=== PATIENT | female | born 1950 | race Caucasian/White ===

== ENCOUNTER 2023-11-15 18:53 | Emergency (ER) | payer MEDICARE, SELFPAY ==
[2023-11-15 18:54] VITALS: BP 178/64; PULSE 66; RESP 14; TEMP 36.3; O2SAT 97; BMI 24.7
[2023-11-15 20:00] VITALS: BP 178/64; PULSE 66; RESP 14; TEMP 36.3; O2SAT 97
--- NOTE | 2023-11-15 20:00 | RAD_ITS ---
INDICATION: Cat bite cellulitis second MCP EXAMINATION/TECHNIQUE: X-RAY - RIGHT XR Hand Min 3 Views 4 VIEWS COMPARISON: No relevant prior comparison study available FINDINGS: BONES: No fracture demonstrated. Mild degenerative changes mostly at the distal interphalangeal joint second through fifth digits. Small fragment adjacent to the distal interphalangeal joint of the second digit/index finger at the dorsal aspect appears well-corticated and may be related to an old fracture and/or degenerative change. JOINTS: No dislocation. SOFT TISSUES: Unremarkable. No radiopaque foreign body identified. RAD/Hand Min 3 Views IMPRESSION: No evidence of fracture. No radiopaque foreign body identified. Electronically Signed: Day Lakhani MD at 20:24 EDT ,
--- NOTE | 2023-11-15 20:01 | EX.ED.GENINJ ---
HPI History of Present Illness Chief Complaint: Bite Informant: patient and family Narrative Narrative: 73-year-old female presenting to the emergency room with cat bite to the right hand. Patient states that last Saturday morning her cat saw another cat through the screen of her window. The 2 began hissing at each other and she attempted to close the window by removing her cat when the cat bit her on the right proximal index finger/MCP joint. She notes by the next day she had swelling and redness on the dorsum of the hand including the lateral MTP joints. She notes that the second MTP joint is still swollen and warm. She has range of motion but notes it is painful to do so. She denies any more proximal symptoms at this time. She denies any more distal symptoms. No reported fevers. Patient is a diabetic but does not take any immunosuppressive medications. [facility] Medical History Edema Kidney disease High blood pressure Hearing problem Diabetes Anemia Home Medications ?Medication ?Instructions ?Recorded ?Last Taken ?Type amlodipine 10 mg tablet 10 mg PO DAILY #90 tabs 08/20/23 Unknown Rx ascorbic acid (vitamin C) 1,000 mg 1 g PO Q6H 08/20/23 Unknown History capsule aspirin 81 mg tablet,delayed 81 mg PO DAILY 08/20/23 Unknown History release (Adult Aspirin Regimen) atorvastatin 40 mg tablet 40 mg PO DAILY #90 tabs 08/20/23 Unknown Rx carvedilol 12.5 mg tablet 12.5 mg PO BID #180 tabs 08/20/23 Unknown Rx cholecalciferol (vitamin D3) 25 25 mcg PO BID 08/20/23 Unknown History mcg (1,000 unit) capsule coQ10 (ubiquinol) 100 mg capsule 100 mg PO DAILY 08/20/23 Unknown History (Qunol Alpesh CoQ10) ferrous sulfate 325 mg (65 mg 325 mg PO DAILY 08/20/23 Unknown History iron) tablet (Feosol) hydralazine 25 mg tablet 25 mg PO BID #180 tabs 08/20/23 Unknown Rx levothyroxine 88 mcg capsule 88 mcg PO DAILY #90 caps 08/20/23 Unknown Rx multivitamin (Multiple Vitamins 1 tab PO DAILY 08/20/23 Unknown History tablet) sitagliptin phosphate 50 mg tablet 50 mg PO DAILY #90 tabs 08/20/23 Unknown Rx (Januvia) venlafaxine 150 mg 150 mg PO QHS #90 caps 08/20/23 Unknown Rx capsule,extended release 24 hr peg 3350-electrolytes 236 4,000 ml PO ONCE #4,000 mL 10/15/23 Unknown Rx gram-22.74 gram-6.74 gram-5.86 gram solution insulin lispro 100 unit/mL 1 sliding scale dose subcut 10/31/23 Unknown Rx subcutaneous pen (Humalog KwikPen USEASDIRECTD #15 mL (U-100) Insulin) amoxicillin 875 mg-potassium 875 mg PO Q12H #19 TABLETS 11/15/23 Unknown Rx clavulanate 125 mg tablet Allergy/AdvReac Type Severity Reaction Status Date / Time aspirin (ASA) AdvReac Severe Rash Verified 11/15/23 18:54 Family History Mother Angina at rest Diabetes Myocardial infarction Heart disease Hypertension Father Angina at rest Heart disease Sister Cancer breast cancer Diabetes Myocardial infarction Hypertension Kidney disease Aunt Cancer breast Diabetes Hypertension Brother Hypertension Surgical History S/P tubal ligation H/O heart artery stent Social History household members: none housing: house current occupational status: unemployed Smoking Status: Former smoker quit date: 04/08/81 pack-years: 5 Electronic Cigarette Use: not used alcohol intake: current alcohol intake frequency: holidays/special occasions only substance use type: does not use what type of physical activity do you participate in: walking frequency: daily seatbelt use: always do you feel safe at home: Yes ROS ROS ED Constitutional Constitutional ED: Denies chills, fever(s) or weight loss Eyes Eyes: Denies change in vision or diplopia ENT ENT ED: Denies ear pain, rhinorrhea or sore throat Cardiovascular Cardiovascular: Denies chest pain, orthopnea, palpitations or racing heartbeat Respiratory/Chest Respiratory/Chest: Denies cough, dyspnea or orthopnea Gastrointestinal Gastrointestinal: Denies abdominal pain, diarrhea, nausea or vomiting Genitourinary Genitourinary ED: Denies dysuria, hematuria or urinary frequency Musculoskeletal Musculoskeletal: Denies arthralgias or myalgias Integumentary Reports other Details: See history of present illness ; Denies abscess or rash Neurologic Neurologic: Denies headache(s) or weakness Psychiatric Psychiatric: Denies anxiety, depression, suicidal ideation or suicidal thoughts Endocrine Endocrinology: Denies polydipsia, polyphagia or polyuria Allergic/Immunologic Allergic/Immunologic ED: Denies mouth swelling, tongue swelling or urticaria EXAM Physical Exam Const Vital Signs: 11/15/23 18:54 11/15/23 20:00 Temperature 97.3 F L 97.3 F L Temperature Source Temporal Temporal Pulse Rate 66 66 Respiratory Rate 14 14 Blood Pressure 178/64 H 178/64 H Blood Pressure Mean 102 102 Pulse Ox 97 97 Oxygen Delivery Method Room Air Room Air Positive well nourished and well developed General Appearance ED: well developed HEENT Reports normocephalic, head/scalp atraumatic and moist mucous membranes Eyes PERRL and EOMs intact bilaterally Neck no lymphadenopathy, supple and no JVD Resp normal respiratory effort and clear to auscultation bilaterally Cardio regular rate, regular rhythm and no murmurs GI normal to inspection, nondistended, normoactive bowel sounds and non-tender Palpation: soft Back/Spine no CVA tenderness and normal ROM Extremity Extremity Narrative: There is mild swelling ecchymosis increased warmth and slight erythema at the second MCP joint of the right hand. This extends approximately 2 cm proximally from the joint on the dorsum of the hand. There are 2 healed puncture sites on the dorsum and dorsal lateral aspect of the proximal phalanx area of the index finger. There is no evidence of tenosynovitis. There is no sausage finger. The tissue of the index finger is still soft. General Extremety ED: Negative for edema General Extremity: Negative for edema Neuro oriented x3 and CN's II-XII intact bilaterally Sensorium / Orientation: alert Motor Exam: strength 5/5 throughout Psych mental status grossly normal Mood & Affect: Negative for depressed or tearful Skin no rashes or lesions noted and no wounds MDM MDM MDM Narrative Medical decision making narrative: Differential diagnosis includes but not limited to cellulitis tenosynovitis retained foreign body osteomyelitis contusion My independent interpretation of the plain films of the right hand is no obvious foreign body. No gas in the soft tissue. Radiology concurs. Patient was given a dose of Augmentin will be given prescription for same. Would recommend heat monitoring for worsening symptoms and return if needed. Patient is comfortable with this plan. Daughter was present during the discussion. History & Record Review Discussion w/independent historian: Patient and Family Radiography Diagnostic Testing: Clinical Impression(s) from Imaging Studies Hand X-Ray 11/15/23 20:00 IMPRESSION: No evidence of fracture. No radiopaque foreign body identified. Electronically Signed: Day Lakhani MD at 20:24 EDT , Discharge Plan Triage Chief Complaint: Bite ED Provider: Braden Scherer Dx/Rx/DC Orders Clinical Impression: Cat bite, Cellulitis of hand, right, Diabetes mellitus Instructions: ED Cat Bite Prescriptions: New amoxicillin-pot clavulanate 875-125 mg tablet 875 mg PO Q12H Qty: 19 0RF No Action aspirin [Adult Aspirin Regimen] 81 mg tablet,delayed release (DR/EC) 81 mg PO DAILY ferrous sulfate [Feosol] 325 mg (65 mg iron) tablet 325 mg PO DAILY multivitamin [Multiple Vitamins] Tablet 1 tab PO DAILY cholecalciferol (vitamin D3) 25 mcg (1,000 unit) capsule 25 mcg PO BID coQ10 (ubiquinol) [Qunol Alpesh CoQ10] 100 mg capsule 100 mg PO DAILY ascorbic acid (vitamin C) 1,000 mg capsule 1 g PO Q6H amlodipine 10 mg tablet 10 mg PO DAILY Qty: 90 1RF hydralazine 25 mg tablet 25 mg PO BID Qty: 180 1RF atorvastatin 40 mg tablet 40 mg PO DAILY Qty: 90 1RF carvedilol 12.5 mg tablet 12.5 mg PO BID Qty: 180 1RF Rx Instructions: must administer with a meal/food Januvia 50 mg tablet 50 mg PO DAILY Qty: 90 1RF levothyroxine 88 mcg capsule 88 mcg PO DAILY Qty: 90 1RF peg 3350-electrolytes 236-22.74-6.74 -5.86 gram recon soln 4,000 ml PO ONCE Qty: 4000 0RF Rx Instructions: until fecal effluent is clear; do not exceed a total volume of 4000 mL venlafaxine 150 mg capsule,extended release 24hr 150 mg PO QHS Qty: 90 1RF insulin lispro [Humalog KwikPen Insulin] 100 unit/mL insulin pen 1 sliding scale dose subcut USEASDIRECTD Qty: 15 3RF Primary Care Provider: Shantelle Xavier Referrals: Shantelle Xavier MD [Primary Care Provider] - As Needed Print Language: Albanian Disposition Disposition: Home, Self Care
[2023-11-15] MEDS: Amox/Clavulanate 875 MG Tablet PO (20:11)
[2023-11-15 20:40] VITALS: BP 177/81; PULSE 62; RESP 17; TEMP 36.4; O2SAT 98
== END 2023-11-15 20:41 | disposition home or self-care (01) ==
PROVIDERS: Emergency Provider Emergency Medicine; PCP Internal Medicine; Visit Provider Emergency Medicine
DX: S60.571A Other superficial bite of hand of right hand, initial encounter (principal); E11.628 Type 2 diabetes mellitus with other skin complications; Z79.4 Long term (current) use of insulin; W55.01XA Bitten by cat, initial encounter; Y93.89 Activity, other specified; L03.113 Cellulitis of right upper limb; I10 Essential (primary) hypertension; Z79.82 Long term (current) use of aspirin; Z79.84 Long term (current) use of oral hypoglycemic drugs; Z79.899 Other long term (current) drug therapy; Z87.891 Personal history of nicotine dependence
CPT/HCPCS: 73130; 99282

== ENCOUNTER → 2023-12-17 | Outpatient (CLI) | payer MEDICARE, SELFPAY ==
[2023-12-17 15:48] LABS: Absolute Lymphocyte Count 3.33 X10^3/uL (0.83-4.51); Absolute Neutrophil Count 3.3 X10^3/uL (2.0-7.7); Basophil# 0.06 X10^3/uL; Basophil% 0.8 % (0-1); Hematocrit 36.6 % (37-47); Hemoglobin 11.9 g/dL (12.0-15.0); Lymphocyte # 3.33 X10^3/ul (0.83-4.51); Lymphocyte % 44.2 % (19-41); Mean Corp Hgb Conc 32.5 g/dL (32-36); Mean Corpuscular Hgb 29.8 pg (27.0-32.0); Mean Corpuscular Volume 91.5 fL (81-99); Mean Platelet Vol. 9.3 fl (6.2-12.0); Monocyte# 0.56 X10^3/uL; Monocyte% 7.4 % (0-10); NRBC Flagged by Analyzer 0 % (0-5); Neutrophil # 3.27 X10^3/uL (2.7-7.7); Neutrophil % 43.5 % (47-70); Platelet Count 268 K/mm3 (150-450); RBC Distribution Width CV 14.4 % (11.6-14.6); RBC Distribution Width SD 48.8 fl (35.1-43.9); White Blood Count 7.5 K/mm3 (4.4-11.0)
[2023-12-17 16:11] LABS: AST(SGOT) 40 U/L (15-37); Alanine Aminotransfer ALT/SGPT 49 U/L (13-56); Albumin, Serum 3.8 g/dL (3.2-5.0); Alkaline Phosphatase 68 U/L (45-117); Anion Gap 7 (5-15); BUN 50 mg/dL (7-18); BUN/Creat Ratio 27.9 RATIO (10-20); Calcium,Total 9.5 mg/dL (8.5-10.1); Chloride 100 mmol/L (98-107); Cholesterol 206 mg/dL (200); Creatinine, Serum 1.79 mg/dL (0.55-1.02); EST Glomerular Filtration Rate 29 mL/min (>60); Est Glom Filt Rate - Afr Amer 36 mL/min (>60); Glucose 253 mg/dL (74-106); High Density Lipoprotein 82 mg/dL; Potassium 4.4 mmol/L (3.5-5.1); Protein, Total 7.8 g/dL (6.4-8.2); Sodium Level 133 mmol/L (136-145); T4 Free Direct 1.15 ng/dL (0.76-1.46); Triglycerides 62 mg/dL; Very Low Density Lipoprotein 12 mg/dL (5-40)
== END | disposition home or self-care (01) ==
LOC: BIMLAB 14:20
PROVIDERS: PCP Internal Medicine; Referring Provider Nurse Practitioner; Visit Provider Nurse Practitioner
DX: I10 Essential (primary) hypertension (principal); E11.9 Type 2 diabetes mellitus without complications; I25.10 Atherosclerotic heart disease of native coronary artery without angina pectoris; E03.9 Hypothyroidism, unspecified
CPT/HCPCS: 36415; 80053; 80061; 84439; 84443; 85025

== ENCOUNTER → 2024-01-20 | Outpatient (CLI) | payer MEDICARE, SELFPAY ==
--- NOTE | 2024-01-20 06:10 | ECHOD_ITS ---
Reason For Study: HYPERTENSION Procedure This was a 2D Doppler, Color Flow transthoracic echocardiogram. Exam performed in department. Left Ventricle Normal LV size. Left ventricular systolic function is normal. The left ventricular ejection fraction is 70 %. No regional wall motion abnormalities noted. Right Ventricle Normal RV size. Normal systolic function. Atria Normal left atrium. Normal right atrium. Bubble contrast study negative for right to left interatrial shunt. Mitral Valve Normal mitral valve. Tricuspid Valve Normal tricuspid valve. Aortic Valve Trisinus/trileaflet aortic valve. Pulmonic Valve Normal pulmonic valve. Great Vessels Normal aortic root. The pulmonary artery is normal size. Normal inferior vena cava. Pericardium/Pleural No pericardial effusion. Medication Performed a rapid injection of agitated mix of 9 cc saline and 1cc air to assess for atrial septal defect. MMode/2D Measurements & Calculations LVIDd: 3.6 cm IVSd: 0.97 cm LVOT diam: 1.8 cm LVIDs: 2.0 cm LVPWd: 0.85 cm RVDd: 4.1 cm FS: 44.1 % LVOT area: 2.6 cm2 asc Aorta Diam: 3.1 cm LAV(MOD-bp): 40.3 ml LVAd ap4: 21.1 cm2 LAV(MOD-bp) Indexed: 26.9 ml/m2 LVLd ap4: 7.1 cm LAV(MOD-sp2): 38.7 ml EDV(MOD-sp4): 50.6 ml LAV(MOD-sp4): 41.5 ml EDV(sp4-el): 52.8 ml LVAs ap4: 9.1 cm2 LVLs ap4: 5.9 cm ESV(MOD-sp4): 12.6 ml ESV(sp4-el): 11.9 ml EF(MOD-sp4): 75.0 % EF(sp4-el): 77.5 % LVAd ap2: 20.3 cm2 SV(MOD-sp4): 38.0 ml SV(MOD-sp2): 31.0 ml LVLd ap2: 7.7 cm EDV(MOD-sp2): 43.6 ml EDV(sp2-el): 45.4 ml LVAs ap2: 9.8 cm2 LVLs ap2: 6.2 cm ESV(MOD-sp2): 12.6 ml ESV(sp2-el): 13.0 ml EF(MOD-sp2): 71.1 % SV(sp4-el): 41.0 ml Ao sinus diam: 2.[address] Junction: 2.2 cm LA dimension(2D): 3.4 cm LA A4 area: 16.6 cm2 RA A4 area: 9.4 cm2 TAPSE: 2.1 cm Time Measurements MV dec time: 0.28 sec Doppler Measurements & Calculations MV E max tera: 93.3 cm/sec Lat Peak E' Tera: 11.2 cm/sec Med Peak E' Tera: 9.5 cm/sec MV A max tera: 100.9 cm/sec E/E' lat: 8.4 E/E' med: 9.8 MV E/A: 0.92 MV dec slope: 332.0 cm/sec2 Ao V2 max: 142.7 cm/sec LV V1 max: 141.6 cm/sec Ao max P.1 mmHg LV V1 max P.0 mmHg Ao V2 mean: 104.5 cm/sec LV V1 mean P.2 mmHg Ao mean P.7 mmHg LV V1 mean: 96.2 cm/sec Ao V2 VTI: 37.0 cm LV V1 VTI: 37.3 cm AV (velocity ratio): 1.0 NETTIE(I,D): 2.7 cm2 NETTIE(V,D): 2.6 cm2 SV(LVOT): 98.6 ml PA V2 max: 107.6 cm/sec TR max tera: 294.9 cm/sec PA max PG (full): 1.0 mmHg TR max P.8 mmHg ECHO/Echo Complete Interpretation Summary Normal LV size. Left ventricular systolic function is normal. The left ventricular ejection fraction is 70 %. Bubble contrast study negative for right to left interatrial shunt. Ordering Physician: Lonnie Portillo Referring Physician: Lonnie Portillo MD Performed By: Connie Loya ARLINE
--- NOTE | 2024-01-20 09:34 | STRESSREP ---
Stress Test Report Pharmacologic myocardial perfusion stress test. 73-year-old lady with a history of chest pain Resting EKG demonstrates sinus rhythm with a rate of 68 bpm. Resting blood pressure is 188/68 mmHg. 0.4 mg of regadenoson was infused per usual protocol followed by rapid intravenous saline flush injection. Continuous EKG monitoring was performed. The maximum heart rate was 93 bpm which was 64% of max impacted heart rate the maximum workload was 1 metabolic equivalent. At rest there were no ST or T wave changes noted to suggest ischemia and at peak infusion nonspecific ST changes were noted which did not meet the criteria for ischemia. No clinical angina is noted. The final blood pressure was 152/60 mmHg. the patient did develop significant hypotension during the infusion though. Myocardial perfusion protocol. 11.7 mCi of technetium 99m sestamibi was injected at rest. 0.4 mg of regadenoson was infused per usual protocol. At peak infusion 34.1 mCi of technetium 99m sestamibi was injected stress images were obtained stress and rest images were reconstructed and compared in the short axis vertical long and horizontal long axis. Gated images were also obtained. Perfusion SPECT analysis: Review of the stress images demonstrate normal uptake of tracer noted in all areas of the myocardium. The resting images similar demonstrated normal uptake of tracer noted in all areas of the myocardium. No areas of reversibility are noted to suggest ischemia and no previous infarct is noted. Gated SPECT analysis: The gated ejection fraction is 78%. Conclusion: Normal pharmacologic myocardial perfusion stress test. Preserved ejection fraction.
== END | disposition home or self-care (01) ==
LOC: CVS 06:10
PROVIDERS: PCP Internal Medicine; Referring Provider Internal Medicine Cardiovascular Disease; Visit Provider Internal Medicine Cardiovascular Disease
DX: I10 Essential (primary) hypertension (principal); I25.10 Atherosclerotic heart disease of native coronary artery without angina pectoris
CPT/HCPCS: 78452; 93017; 93306; A9500; A4216; J2785

== ENCOUNTER 2024-02-28 06:22 | Day surgery (SDC) | payer MEDICARE, SELFPAY ==
[2024-02-28] VITALS (8 sets, daily range): BP systolic 89–153; BP diastolic 57–69; PULSE 71–83; RESP 16–17; TEMP 36.2–36.6; O2SAT 92–99; BMI 24.5
--- NOTE | 2024-02-28 07:11 | PCM.PRE.AN2 ---
ASA Classification* ASA Classification ASA Classification: 3 Assessment & Plan Anesthesia* Anesthesia Assessment Anesthesia Assessment: Discussed sedation and/or anesthesia options, risks, benefits, and alternatives with patient/parents/legal guardian/POA. Questions invited. The patient/parents/legal guardian/POA seems to understand and agrees to proceed with anesthesia plan. Reviewed the physical assessment, medical history, allergy history and patient home medications list prior to surgery/procedure/anesthetic and documented any changes. Performed airway and anesthesia risk assessments. Anesthesia Type Anesthesia Type: MAC Anesthesia Focused Assessment* Temperature: 97.8 F Pulse Rate: 71 Blood Pressure: 153/61 Respiratory Rate: 17 Pulse Ox: 99 Airway Assessment Mouth opens: >3 cm Mallampati Score: II Focused Labs Anesthesia Preop lab: CBC WBC 7.5 K/mm3 (4.4-11.0) 12/17/23 14:20 RBC 4.00 M/mm3 (4.2-5.4) L 12/17/23 14:20 Hgb 11.9 g/dL (12.0-15.0) L 12/17/23 14:20 Hct 36.6 % (37-47) L 12/17/23 14:20 Plt Count 268 K/mm3 (150-450) 12/17/23 14:20 CHEMISTRY Potassium 4.4 mmol/L (3.5-5.1) 12/17/23 14:20 Sodium 133 mmol/L (136-145) L 12/17/23 14:20 BUN 50 mg/dL (7-18) H 12/17/23 14:20 Creatinine 1.79 mg/dL (0.55-1.02) H 12/17/23 14:20 Glucose 253 mg/dL (74-106) H 12/17/23 14:20 TSH 4.770 uIU/mL (0.358-3.740) H 12/17/23 14:20 COAG Pre-Assessment Diagnosis/Proposed Procedure Planned Operative Procedure(s): CSCOPE Anesthesia History 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 When Was Last Pacemaker Check QUESTION #4 FULL TEXT: You/Your Family Experience fever (hyperthermia) with Anesthesia Last Oral Intake Last Oral intake: Last Oral Intake NPO since 00:00 02/28/24 06:50 Meds taken in AM with sips of Yes 02/28/24 06:50 water? 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 Female Yes 02/27/24 08:31 HX of Motion Sickness No 02/27/24 08:31 HX of N/V After Surgery No 02/27/24 08:31 Non-Smoker Yes 02/27/24 08:31 Duration of Surgery greater No 02/27/24 08:31 than 60 minutes Number of Risk Factors 2 02/27/24 08:31 PONV Score Moderate Risk 02/27/24 08:31 Height & Weight Height & Weight: Anesthesia: Height & Weight Height 5 ft 02/28/24 06:50 Weight: 57.1 kg 02/28/24 06:50 Body Mass Index (BMI) 24.5 02/28/24 06:50 Respiratory Assessment Respiratory Assessment - packing shed supervisor: Respiratory Tract Infection Hx - packing shed supervisor Hx Respiratory Tract Infection No 02/27/24 08:31 STOP Sleep Apnea STOP Sleep Apnea - packing shed supervisor: STOP Sleep Apnea - packing shed supervisor Hx Hypertension Yes: CONTROLLED WITH MED 02/27/24 08:31 Hx Sleep Apnea No 02/27/24 08:31 CPAP BIPAP Do you snore loudly (louder No 02/27/24 08:31 than talking or can be heard Do you often feel tired/ No 02/27/24 08:31 fatigued/ sleepy during daytime? Has anyone observed you stop No 02/27/24 08:31 breathing during sleep? STOP Results Negative 02/27/24 08:31 QUESTION #5 FULL TEXT : Do you snore loudly (louder than talking or can be heard through closed doors)? 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 Specify any problems Hx of Preganancy in last 3 No 02/27/24 08:31 Months Nurse Filling Out Transfusion DSCHRIBER 02/27/24 08:31 & Questions: Date: 02/27/24 02/27/24 08:31 Time: 08:32 02/27/24 08:31 Patient unable to answer at this time (ie. confused, unrespo /Reproduction History /Reproductive History - packing shed supervisor: /Reproductive Hx- packing shed supervisor Hx Now No 02/27/24 08:31 Gestational Age (in weeks): EDC: Hx Hx Para Hx Section SAB No 02/27/24 08:31 PFSH Medical History Loss of hearing Wears dentures Wears glasses Post-menopausal Depression Anxiety Alcohol use Thyroid disease Insulin dependent diabetes mellitus History of renal disease Low iron High cholesterol Dietary restriction Heartburn Former smoker Hypertension History of edema History of echocardiogram History of stress test Cardiology follow-up encounter History of CHF (congestive heart failure) Controlled type 2 diabetes mellitus Anxiety and depression Acquired hypothyroidism CAD (coronary artery disease) Kidney disease Hearing problem Anemia Home Medications ?Medication ?Instructions ?Recorded ?Last Taken ?Type amlodipine 10 mg tablet 10 mg PO DAILY #90 tabs 08/20/23 02/28/24 Rx aspirin 81 mg tablet,delayed 81 mg PO DAILY 08/20/23 02/26/24 History release (Adult Aspirin Regimen) carvedilol 12.5 mg tablet 12.5 mg PO BID #180 tabs 08/20/23 02/28/24 Rx cholecalciferol (vitamin D3) 25 25 mcg PO BID 08/20/23 02/27/24 History mcg (1,000 unit) capsule coQ10 (ubiquinol) 100 mg capsule 100 mg PO DAILY 08/20/23 02/27/24 History (Qunol Alpesh CoQ10) levothyroxine 88 mcg capsule 88 mcg PO DAILY #90 caps 08/20/23 02/28/24 Rx multivitamin (Multiple Vitamins 1 tab PO DAILY 08/20/23 02/27/24 History tablet) venlafaxine 150 mg 150 mg PO QHS #90 caps 08/20/23 02/27/24 Rx capsule,extended release 24 hr insulin lispro 100 unit/mL 1 sliding scale dose subcut 01/21/24 02/27/24 Rx subcutaneous pen (Humalog KwikPen USEASDIRECTD #15 mL (U-100) Insulin) sitagliptin phosphate 50 mg tablet 75 mg (1.5 x 50 mg) PO DAILY #90 01/21/24 02/27/24 Rx (Januvia) tabs hydralazine 25 mg tablet 25 mg PO BID #180 tabs 02/24/24 02/27/24 Rx atorvastatin 40 mg tablet 40 mg PO QHS 02/27/24 02/28/24 History Allergy/AdvReac Type Severity Reaction Status Date / Time aspirin (ASA) AdvReac Severe Rash Verified 02/28/24 06:49 Family History Mother Angina at rest Diabetes Myocardial infarction Heart disease Hypertension Father Angina at rest Heart disease Sister Cancer breast cancer Diabetes Myocardial infarction Hypertension Kidney disease Aunt Cancer breast Diabetes Hypertension Brother Hypertension Surgical History Hx of colonoscopy S/P tubal ligation H/O heart artery stent (04/15/08) Social History household members: none housing: house current occupational status: unemployed Smoking Status: Former smoker quit date: 04/08/81 pack-years: 5 Electronic Cigarette Use: not used alcohol intake: current alcohol intake frequency: holidays/special occasions only substance use type: does not use what type of physical activity do you participate in: walking frequency: daily seatbelt use: always do you feel safe at home: Yes Review of Systems (Anesthesia) ROS Narrative System reviewed and no additional complaints, except as documented.
--- NOTE | 2024-02-28 07:20 | HP.PCM_ITS ---
History and Physical Date of Admission: 02/28/24 Patient is a 73-year-old female who presents for need to schedule surveillance colonoscopy secondary to history of polyps and unknown duration since last colonoscopy. They are referred for surgical consultation from Dr. Xavier. Patient has had prior colonoscopy and she recalls that there was a history of 3 polyps that were removed and check for cancer but none was found. Patient has no personal history of colon cancer, inflammatory bowel disease, or diverticulitis. They describe their bowel habits as characterized by constipation. She shares that this has been the case for the last 1 to 2 years. She shares that she has tried Benefiber and MiraLAX without benefit while Dulcolax can take 3 tabs up to 3 days to begin working. She estimates that she will have a bowel movement every 5 to 7 days. They spend roughly less than 10 minutes on the toilet with occasional significant straining. They have not noticed recent bleeding or dark stools. She shares that she was advised to discontinue supplemental iron due to risk for constipation and has experienced some improvement in her stool frequency but not seen any further dark stools. They do not regularly take fiber supplements. They do consume significant fiber in their regular diet. Mrs. Rosario initially states that she has lots of water consumption, but then adds that some of this water consumption comes through her ice tea habit. In addition to the above Mrs. Rosario remarks of some bloating and lots of g as. She notes this is present mostly after dinner at night. Patient has no family history of colon cancer. The patient's weight is stable. The patient is not prescribed anticoagulants/blood thinners. Relevant prior abdominal surgical history includes: Tubal ligation Patient does not have a significant history of GERD/heartburn [] ROS General General: No weight change, appetite, fatigue, colon cancer, breast cancer or weakness HEENT HEENT: No difficulty swallowing, eye injury, eye surgery, swollen glands or hoarseness Endo Endocrine: Yes thyroid disease and diabetes mellitus; No thyroid cancer, Hair loss, heat intolerance or cold intolerance Skin Skin: No rash or changing moles Breast Breast: No left breast lump, right breast lump, nipple discharge, breast pain, abnormal mammogram, abnormal US or breast enlargement Musc Musculoskeletal: No back problems, arthritis, rheumatoid arthritis, gout or joint pain Cardio Cardiovascular: Yes heart disease, high blood pressure and heart stent; No murmur, pacemaker, atrial fibrillation, heart attack, palpitations, shortness of breat with exertion or chest pain Psych Psychiatric: No depression, anxiety or hearing voices Resp Respiratory: No shortness of breath, No sleep apnea, No cough, No COPD, No asthma, No emphysema and No wheezing Gastro Gastrointestinal: No abdominal pain, No nausea or vomiting, No diarrhea, Yes constipation, No blood in stool, No acid reflux, No hemorrhoids, No ulcers, No gallbladder problem and No black,tarry stools Claus Hematologic: No blood thinners, No blood disorders, No bleeding, No anemia and No blood clots Neuro Neurologic: No system reviewed and no additional complaints, except as documented, No as per HPI, No abnormal gait, No abnormal hearing, No abnormal movements, No abnormal speech, No behavioral changes, No burning sensations, No confusion, No convulsions, No disequilibrium, No dizziness, No localized weakness, No frequent falls, No headache(s), No lack of coordination, No loss of vision, No memory loss, No numbness, No other visual disturbances, No radicular pain, No restless legs, No sensory deficit, No syncope, No tingling, No tremor(s), No weakness and No other Exam Const General: cooperative, healthy appearing, comfortable and no acute distress Orientation: alert, awake and oriented x3 Resp Effort & Inspection: normal respiratory effort GI Other: No scars, no visible herniation, soft, nondistended, nontender to palpation x 4 quadrants Assessment and Plan Assessment and Plan (1) Constipation: Plan: Patient is a 73-year-old female who presents reportedly for concerns for updating her screening colonoscopies, however, she describes a 1 to 2-year history of constipation refractory to many prokinetic agents. She describes a bowel movement frequency of once every 5 to 7 days despite use of these agents. After a careful history it is apparent that her water intake may be suboptimal due to diuretic effects. She is encouraged to try to drink more water, however, given the change in her bowel habits and her history of colon polyps I do find is reasonable to pursue colonoscopy. Thus this is recommended and bowel prep was reviewed in detail. With her bowel habits refractory to Dulcolax I have prescribed a GoLytely bowel prep. We also discussed her history of coronary stent placement in 2008 without subsequent cardiology follow-up. While overall she appears to be in a stable state of health?denying any new fatigue or shortness of breath?she does have new swelling and marked hypertension issues (at today's visit her systolic pressures have ranged between 198 and 207 mmHg). Thus I will refer her to [facility] to establish care and seek their opinion for any preprocedure optimization prior to undergoing colonoscopy. (2) History of colon polyps: Status: Chronic Comment: Patient with a history of benign colon polyps. She is unsure of the surveillance interval recommended. She is also unsure of the last time she underwent colonoscopy, but given her development of new constipation I find it reasonable to update her surveillance with repeat colonoscopy. See above Plan: Plan will be to complete colonoscopy on sometime mid November under local [facility]. Pre-procedure prep discussed and paper instructions provided. Patient is also made aware that she will need to have a trailer truck driver with her the day of the procedure. I have examined the patient the following changes are noted: Patient met with cardiology and underwent preprocedural stress testing which she was able to complete without further event. She confirms she completed prep for today's procedure and her output is now clear. She denies any additional interval health issues. Will now proceed for colonoscopy given progressive history of constipation.
--- NOTE | 2024-02-28 07:30 | EGD_PTH ---
PATIENT: GOYO AARON LOC: EN U#:[id number] AGE/SX: 73/F ROOM: RE02/28/[address]: Dr. Ricki Ontiveros MD : 1950 BED: DIS: 02/28/2024 SPEC #: [id number] RECD: 02/28/24 12:08 STATUS: SOPHIA REChasity #: [id number] SAMY: 02/28/24 07:[address]: Ricki Ontiveros DEPT: SURGICAL PATHOLOGY RECD BY: Maldonado Garvin ENTERED: 02/28/24 12:08 SP TYPE: EGD BIOPSY OT DR: Dr. Shantelle Xavier MD Tissues: Descending colon Procedures: Surgery Specimen Level IV HEADER OPERATION: Colonoscopy and polypectomy PRE-OP DIAGNOSIS: Constipation TISSUE SUBMITTED: Descending colon polyp MICROSCOPIC DIAGNOSIS Descending colon polyp, biopsy: Tubular adenoma. AMKalpanamr 03/02/2024 MICROSCOPIC DESCRIPTION Slides are reviewed. GROSS DESCRIPTION Received in fixative is one container labeled with the patient's name and designated Descending colon polyp. The specimen consists of two irregular fragments of light mahajan soft tissue that in aggregate measure 0.6 x 0.3 x 0.2cm. The specimen is totally submitted in one cassette. 02/28/2024 TC:5 CPT:28283
--- NOTE | 2024-02-28 08:27 | PCM.POST.ANE ---
Anesthesia: Postop Eval I Current Vital Signs Temperature: 97.5 F Pulse Rate: 75 Blood Pressure: 127/60 Respiratory Rate: 16 Pulse Ox: 95 Oxygen Delivery Method: Room Air Assessment Airway patent: Yes Spontaneous unlabored respirations: Yes Mental status: Awake and Calm nausea: No Vomiting: No Anesthesia Complication: No Fluid Hydration Crystalloid volume administer (ml): 90 Total IV fluid infused: 90 Progress Note Anesthesia document: Postop Eval 1 completed: Yes
--- NOTE | 2024-02-28 08:39 | OP.COLON_ITS ---
Patient Name: Manju Rosario Procedure Date: 02/28/2024 7:26 AM Date of : 1950 Age: 73 Procedure: Colonoscopy Indications: Follow-up for history of colon polyps, Constipation Providers: Ricki Ontiveros MD Referring MD: Shantelle Xavier Md Medicines: See the Anesthesia note for documentation of the administered medications Patient Profile: Last Colonoscopy: date unknown. Unable to locate last colonoscopy report. Complications: No immediate complications. Estimated blood loss: Minimal. Procedure: Pre-Anesthesia Assessment: - The heart rate, respiratory rate, oxygen saturations, blood pressure, adequacy of pulmonary ventilation, and response to care were monitored throughout the procedure. After I obtained informed consent, the scope was passed under direct vision. Throughout the procedure, the patient's blood pressure, pulse, and oxygen saturations were monitored continuously. The pediatric colonoscope was introduced through the anus and advanced to the cecum, identified by the appendiceal orifice, IC valve and transillumination. Scope In: 7:42:02 AM Scope Withdrawal Time 0 hours 16 minutes 25 seconds Scope Out: 8:18:18 AM Total Procedure Duration Time 0 hours 36 minutes 16 seconds Findings: Skin tags were found on perianal exam. A small, non-bleeding polyp was found in the descending colon. The polyp was semi-pedunculated. The polyp was removed with a hot snare. Resection and retrieval were complete. Estimated blood loss was minimal. Scattered small-mouthed diverticula were found in the sigmoid colon. No biopsies or other specimens were collected for this exam. The exam was otherwise without abnormality on direct and retroflexion views. Impression: - Perianal skin tags found on perianal exam. - One small, non-bleeding polyp in the descending colon, removed with a hot snare. Resected and retrieved. - Diverticulosis in the sigmoid colon. No specimens collected. - The examination was otherwise normal on direct and retroflexion views. Recommendation: - Discharge patient to home (via wheelchair). - High fiber diet today. - No aspirin, ibuprofen, naproxen, or other non-steroidal anti-inflammatory drugs for 2 days after polyp removal. - Await pathology results. - Repeat colonoscopy date to be determined after pending pathology results are reviewed. - Telephone my office for pathology results in 1 week. Procedure Code(s): --- Professional --- 39725, Colonoscopy, flexible; with removal of tumor(s), polyp(s), or other lesion(s) by snare technique Diagnosis Code(s): --- Professional --- D12.4, Benign neoplasm of descending colon K64.4, Residual hemorrhoidal skin tags Z86.010, Personal history of colonic polyps K59.00, Constipation, unspecified K57.30, Diverticulosis of large intestine without perforation or abscess without bleeding CPT copyright 2021 [employer]. All rights reserved. The codes documented in this report are preliminary and upon certified professional coder review may be revised to meet current compliance requirements. Ricki Ontiveros MD 02/28/2024 8:39:38 AM This report has been signed electronically. Number of Addenda: 0 Note Initiated On: 02/28/2024 7:26 AM
--- NOTE | 2024-02-28 08:40 | OP.CCLET_ITS ---
02/28/2024 Shantelle Xavier Md Re : Colonoscopy procedure for Manju Rosario Dear Duc This procedure was performed on Wednesday, February 28, 2024. My impressions and recommendations are as follows: Impressions : - Perianal skin tags found on perianal exam. - One small, non-bleeding polyp in the descending colon, removed with a hot snare. Resected and retrieved. - Diverticulosis in the sigmoid colon. No specimens collected. - The examination was otherwise normal on direct and retroflexion views. Recommendations : - Discharge patient to home (via wheelchair). - High fiber diet today. - No aspirin, ibuprofen, naproxen, or other non-steroidal anti-inflammatory drugs for 2 days after polyp removal. - Await pathology results. - Repeat colonoscopy date to be determined after pending pathology results are reviewed. - Telephone my office for pathology results in 1 week. My findings are described in the full procedure note, which is enclosed. If I can be of further assistance, please feel free to contact me at Doctor phone number(s): , Work: . Sincerely, Ricki Ontiveros MD 02/28/2024 8:39:38 AM This report has been signed electronically.
[2024-02-28 09:10] LABS: Bedside Glucose 132 mg/dL (74-106)
--- NOTE | 2024-02-28 09:11 | PCM.POSTANE2 ---
Anesthesia Postop Eval I Sum Postop Eval Completion status Anesthesia document: Postop Eval 1 completed: Yes Anesthesia Postop Eval I Summary Anesthesia Postop Eval I Summary: Anesthesia Postop Eval I: Assessment Summary Airway patent Yes 02/28/24 08:28 [email or web address] Spontaneous unlabored Yes 02/28/24 08:28 [email or web address] respirations Mental status Awake,Calm 02/28/24 08:28 [email or web address] nausea No 02/28/24 08:28 [email or web address] Vomiting No 02/28/24 08:28 [email or web address] Anesthesia Postop Eval I: Fluid Summary Crystalloid volume administer 90 02/28/24 08:28 [email or web address] (ml) Colloids volume administered ( ml) Blood Product volume administered (ml) Total IV fluid infused 90 02/28/24 08:28 [email or web address] Anesthesia Postop Eval I: Summary Notes Anesthesia Complication No 02/28/24 08:28 [email or web address] Anesthesia Complication Comment: Post-operative progress note Anesthesia: Postop Eval II Evaluation Mental status: Awake Pain Level: 0 nausea: No Vomiting: No
== END 2024-02-28 09:16 | disposition home or self-care (01) ==
LOC: EN 06:24 → AC 06:26
PROVIDERS: PCP Internal Medicine; Referring Provider Internal Medicine; Visit Provider Surgery
PROC: 0DJD8ZZ Inspection of Lower Intestinal Tract, Via Natural or Artificial Opening Endoscopic (ICD-10-PCS; CPT 45378; principal; 2024-02-28 07:25)
DX: D12.4 Benign neoplasm of descending colon (principal); E11.9 Type 2 diabetes mellitus without complications; K57.30 Diverticulosis of large intestine without perforation or abscess without bleeding; K64.4 Residual hemorrhoidal skin tags; Z90.49 Acquired absence of other specified parts of digestive tract; Z86.0100 Personal history of colon polyps, unspecified; K59.00 Constipation, unspecified; Z98.51 Tubal ligation status; E07.9 Disorder of thyroid, unspecified
CPT/HCPCS: 45385; 82962; 88305; A4216; J2405

== ENCOUNTER → 2024-05-20 | Outpatient (CLI) | payer MEDICARE, SELFPAY ==
[2024-05-20 12:41] LABS: Absolute Lymphocyte Count 2.56 X10^3/uL (0.83-4.51); Absolute Neutrophil Count 2.5 X10^3/uL (2.0-7.7); Basophil# 0.06 X10^3/uL; Eosinophil# 0.22 X10^3/uL; Eosinophils% 3.8 % (0-5); Hematocrit 39.4 % (37-47); Hemoglobin 12.5 g/dL (12.0-15.0); Lymphocyte # 2.56 X10^3/ul (0.83-4.51); Lymphocyte % 44.1 % (19-41); Mean Corp Hgb Conc 31.7 g/dL (32-36); Mean Corpuscular Hgb 29.6 pg (27.0-32.0); Mean Corpuscular Volume 93.1 fL (81-99); Mean Platelet Vol. 9.3 fl (6.2-12.0); Monocyte# 0.47 X10^3/uL; Monocyte% 8.1 % (0-10); NRBC Flagged by Analyzer 0 % (0-5); Neutrophil # 2.48 X10^3/uL (2.7-7.7); Neutrophil % 42.8 % (47-70); Platelet Count 299 K/mm3 (150-450); RBC Distribution Width CV 13.7 % (11.6-14.6); RBC Distribution Width SD 47.1 fl (35.1-43.9); Red Blood Count 4.23 M/mm3 (4.2-5.4); White Blood Count 5.8 K/mm3 (4.4-11.0)
[2024-05-20 13:50] LABS: AST(SGOT) 22 U/L (15-37); Alanine Aminotransfer ALT/SGPT 25 U/L (13-56); Albumin, Serum 3.8 g/dL (3.2-5.0); Alkaline Phosphatase 71 U/L (45-117); Anion Gap 8 (5-15); BUN 42 mg/dL (7-18); Chloride 101 mmol/L (98-107); EST Glomerular Filtration Rate 39 mL/min (>60); Est Glom Filt Rate - Afr Amer 47 mL/min (>60); Globulin 3.8 g/dL (2.2-4.2); Glucose 168 mg/dL (74-106); Protein, Total 7.6 g/dL (6.4-8.2); Sodium Level 136 mmol/L (136-145)
== END | disposition home or self-care (01) ==
PROVIDERS: PCP Internal Medicine; Referring Provider Internal Medicine; Visit Provider Internal Medicine
DX: I10 Essential (primary) hypertension (principal); E11.9 Type 2 diabetes mellitus without complications
CPT/HCPCS: 80053; 82043; 84443; 85025

== ENCOUNTER → 2024-06-08 | Outpatient (CLI) | payer MEDICARE, SELFPAY ==
--- NOTE | 2024-06-08 10:31 | BI_ITS ---
PROCEDURE: SCRN MAMM (CAD)W/EUGENE BILAT REASON FOR EXAM: F, Age 73 y/o, twin sister with breast cancer. Follow-up. TECHNIQUE: Bilateral screening digital breast tomosynthesis with 2D and 3D images. Computer aided detection. COMPARISON: Prior exam(s) dating back to prior outside examination dated February 18, 2018.. FINDINGS: The breasts are almost entirely fatty. Stable bilateral secretory calcification. No suspicious masses, areas of developing architectural distortion, or suspicious calcifications. BI/SCRN MAMM (CAD)W/EUGENE BILAT IMPRESSION: BI-RADS 2: BENIGN. RECOMMEND ANNUAL MAMMOGRAPHIC SCREENING. Follow-up code: Routine Follow-up The patient will be notified of the results by letter. Reading Location: [id number]
== END | disposition home or self-care (01) ==
LOC: OPBI 10:29
PROVIDERS: PCP Internal Medicine; Referring Provider Internal Medicine; Visit Provider Internal Medicine
DX: Z12.31 Encounter for screening mammogram for malignant neoplasm of breast (principal); Z80.3 Family history of malignant neoplasm of breast
CPT/HCPCS: 77063; 77067

== ENCOUNTER → 2024-10-07 | Outpatient (CLI) | payer MEDICARE, SELFPAY | END | disposition home or self-care (01) | LOC: MTLAB 13:17 | PROVIDERS: PCP Internal Medicine; Referring Provider Internal Medicine; Visit Provider Internal Medicine | DX: E03.9 Hypothyroidism, unspecified (principal) | CPT/HCPCS: 36415; 84443 ==

== ENCOUNTER → 2024-10-14 | Outpatient (CLI) | payer MEDICARE, SELFPAY ==
--- NOTE | 2024-10-14 12:30 | BD_ITS ---
PROCEDURE: DEXA BONE DENSITY STUDY 10/14/2024 REASON FOR EXAM: SCREENING F, age 74 y/o . Postmenopausal. TECHNIQUE: DEXA BONE DENSITY STUDY COMPARISON: None FINDINGS: BMD and T-SCORES Lumbar spine: 0.968 g/cm2, T-score -0.4 Levels: L1 through L4 Left femoral neck: 0.600 g/cm2, T-score -2.2 Femoral neck comparison data not recommended for monitoring change. Left total hip: 0.720 g/cm2, T-score -1.8 The World Health Organization has defined the following categories based on bone density: Normal bone density: T-score equal to or greater than -1.0 Osteopenia: T-score between -1.0 and -2.5 Osteoporosis: T-score equal to or less than -2.5 The patient does meet the pharmacological treatment recommendations for prevention of osteoporosis. BD/Dexa Bone Density Study IMPRESSION: OSTEOPENIA. Recommend follow-up as clinically warranted. Reading Location: [place] [id number]
== END | disposition home or self-care (01) ==
PROVIDERS: PCP Internal Medicine; Referring Provider Internal Medicine; Visit Provider Internal Medicine
DX: Z78.0 Asymptomatic menopausal state (principal)
CPT/HCPCS: 77080

== ENCOUNTER → 2025-01-19 | Outpatient (CLI) | payer MEDICARE, SELFPAY ==
--- NOTE | 2025-01-19 06:33 | ART_ITS ---
Reason For Study Reason For Study: Claudication Procedure A bilateral lower extremity continuous wave Doppler with analog waveform analysis,segmental pressures,and ankle brachial indexes without exercise. Left Segmental Pressures Left brachial= 174mmHg. Left posterior tibial artery = 185mmHg. Left dorsalis pedis artery = 182mmHg. Left digit = 78 mmHg. The left posterior tibial artery waveforms are biphasic. The left dorsalis pedis waveforms are biphasic. Right Segmental Pressures Right brachial= 184mmHg. Right posterior tibial artery = >254mmHg. Right dorsalis pedis artery = >254mmHg. Right digit = 105 mmHg. The right posterior tibial artery waveforms are triphasic. The right dorsalis pedis waveforms are triphasic. Indices The right ankle brachial index by the posterior tibial artery is N/C. The right ankle brachial index by the dorsalis pedis is N/C. The right digital-brachial index is 0.57. The left ankle brachial index by the posterior tibial artery is 1.01. The left ankle brachial index by the dorsalis pedis is 0.99. The left digital-brachial index is 0.42. VL/Lower Ext Art Exam w/o Exercis Interpretation Summary Right AVTAR not able to be obtained due to non-compressible vessels. Doppler/PVR waveforms of the right leg normal at rest. TBI diminished, pedal/digit disease vs spasm. Left AVTAR 1.01, normal. Doppler/PVR waveforms of the left leg mildly diminished at rest. TBI diminished, pedal/digit disease vs spasm. Ordering Physician: Fabiana Hernandez Referring Physician: Shantelle Xavier Performed By: Stephon Huntley, RVT
--- NOTE | 2025-01-19 17:16 | STRESSREP ---
Stress Test Report Pharmacologic myocardial perfusion stress test. 74-year-old female with a history of coronary artery disease. Resting EKG demonstrates normal sinus rhythm with a right bundle branch block with a rate of 58 bpm. Resting blood pressure is 154/70 mmHg. 0.4 mg of regadenoson was infused per usual protocol followed by rapid intravenous saline flush injection. Continuous EKG monitoring was performed. The maximum heart rate was 88 bpm which was 61% of max impacted heart rate the maximum workload was 1 metabolic equivalent. At rest there were no ST or T wave changes noted to suggest ischemia and at peak infusion nonspecific ST changes were noted which did not meet the criteria for ischemia. No clinical angina is noted. The final blood pressure was 152/64 mmHg. Myocardial perfusion protocol. 11.3 mCi of technetium 99m sestamibi was injected at rest. 0.4 mg of regadenoson was infused per usual protocol. At peak infusion 33 mCi of technetium 99m sestamibi was injected stress images were obtained stress and rest images were reconstructed and compared in the short axis vertical long and horizontal long axis. Gated images were also obtained. Perfusion SPECT analysis: Review of the stress images demonstrate normal uptake of tracer noted in all areas of the myocardium. The resting images similar demonstrated normal uptake of tracer noted in all areas of the myocardium. No areas of reversibility are noted to suggest ischemia and no previous infarct is noted. Gated SPECT analysis: The gated ejection fraction is over 80% %. Conclusion: Normal pharmacologic myocardial perfusion stress test. Preserved ejection fraction.
== END | disposition home or self-care (01) ==
LOC: CVS 06:32
PROVIDERS: PCP Internal Medicine; Referring Provider Physician Assistant Medical; Visit Provider Physician Assistant Medical
DX: I73.9 Peripheral vascular disease, unspecified (principal); R07.9 Chest pain, unspecified
CPT/HCPCS: 78452; 93017; 93923; A9500; A4216; J2785

== ENCOUNTER → 2025-02-19 | Outpatient (CLI) | payer MEDICARE, SELFPAY ==
[2025-02-19 12:12] LABS: AST(SGOT) 23 U/L (<=31); Alanine Aminotransfer ALT/SGPT 18 U/L (<=34); Albumin, Serum 4.1 g/dL (3.4-4.8); Alkaline Phosphatase 64 U/L (35-104); Bilirubin, Direct 0.11 mg/dL (0.00-0.30); Cholesterol 173 mg/dL (<=200); Globulin 2.8 g/dL (2.2-4.2); Low Density Lipoprotein Calc. 83 mg/dL; Triglycerides 131 mg/dL; Very Low Density Lipoprotein 26 mg/dL (5-40); cholesterol:hdl ratio screen 2.58
== END | disposition home or self-care (01) ==
LOC: LAB 11:02
PROVIDERS: PCP Internal Medicine; Referring Provider Physician Assistant Medical; Visit Provider Physician Assistant Medical
DX: E78.5 Hyperlipidemia, unspecified (principal)
CPT/HCPCS: 36415; 80061; 80076